=== PATIENT | female | born 1950 | race Two or more races ===

== ENCOUNTER 2020-04-23 13:25 | Outpatient (CLI) | payer OTHER ==
[~2020-04-23 13:25] MED LIST: CIPRO500 MG PO; PREVACID30 MG PO
== END 2020-04-23 13:27 | disposition home or self-care (01) ==
LOC: NUCLEAR 13:25
PROVIDERS: ATTEND Specialist
DX: M81.0 Age-related osteoporosis without current pathological fracture (principal)

== ENCOUNTER 2020-04-23 14:19 | Outpatient (CLI) | payer OTHER | END 2020-04-23 14:28 | disposition home or self-care (01) | LOC: MAMO-SONO 14:19 | PROVIDERS: ATTEND Specialist | DX: Z12.31 Encounter for screening mammogram for malignant neoplasm of breast (principal); N64.4 Mastodynia ==

== ENCOUNTER 2022-01-23 10:50 | Outpatient (CLI) | payer OTHER | END 2022-01-23 11:54 | disposition home or self-care (01) | LOC: SONOGRAMA 10:50 | PROVIDERS: ATTEND Internal Medicine | DX: M54.17 Radiculopathy, lumbosacral region (principal); E78.00 Pure hypercholesterolemia, unspecified; E55.9 Vitamin D deficiency, unspecified; N18.2 Chronic kidney disease, stage 2 (mild) ==